=== PATIENT | female | born 1990 | race Caucasian/White ===

== ENCOUNTER 2016-12-06 18:01 | Emergency (ER) | payer MEDICAID ==
[~2016-12-06] VITALS: Ht 162.6 cm; Wt 59.6 kg
[~2016-12-06 18:01] MED LIST: ACET-2161 PO; ALBU8.5H INH; BENZ100C97 PO; BUDE0.5A6 AEROSOL; FLUO-138 PO; GUAI473S6 PO; HYDR-4246 PO; IBUP-1724 PO; ROPI0.256 PO
[2016-12-06 18:05] VITALS: Ht 162.6 cm; Wt 59.6 kg
--- OUTSIDE RECORDS SUMMARY | 2016-12-06 18:06 | XMS REPORT ---
Author Author Sherice Sang [facility] Address [address], [place] [address] Care Team Providers Care Upper Marker Name Role Phone Sang Smiley Unavailable [phone] PROBLEMS Type Condition ICD9-CM Code [id number] Code Onset Dates Condition Status SNOMED Code Problem Depressive disorder F32.9 Active 15474147 Problem Anxiety disorder, unspecified F41.9 Active 729615993 Problem Nicotine dependence, unspecified, uncomplicated F17.200 Active 920476129 Assessment Encounter for dental examination and cleaning without abnormal findings Z01.20 Jul, Active 168288593 Problem Restless legs syndrome G25.81 Active 40001317 Problem Migraine, unspecified, not intractable, without status migrainosus G43.909 Active 75643264 ALLERGIES Substance Reaction Event Type Date Status Zofran rash with IV form Drug Allergy Jul, Active Tramadol HCl anaphylaxis Drug Allergy Jul, Active Norflex rash Drug Allergy Jul, Active phenergan hives Non Drug Allergy Jul, Active peppers anaphylaxis Non Drug Allergy Jul, Active SOCIAL HISTORY No smoking Hx information available PLAN OF CARE VITAL SIGNS MEDICATIONS Medication Instructions Dosage Frequency Start Date End Date Duration Status Prozac 10 MG Orally Once a day 1 capsule in the morning 24h Jun, 30 day(s) Active ProAir HFA 108 (90 Base) MCG/ACT Inhalation every 6 hrs 2 puffs as needed for cough/congestion 6h Sep, 30 days Active Hydrocodone-Acetaminophen 7.5-325 MG Orally every 4-6 hrs p.r.n. for 1 tablet as needed Jul, 3 days Active Requip 0.25 MG Orally Once a day take 1 tablet one to three hours before bedtime 24h Mar, 30 day(s) Active RESULTS No Results PROCEDURES Procedure Date Ordered Related Diagnosis Body Site INTRAORL-PERIAPICAL 1 FILM 61287 Jul 29, 2016 LTD ORAL EVALUATION - PROBLEM FOCUS Jul 29, 2016 PALLIATVE TX DENTAL PAIN-MINOR PROC Jul 29, 2016 IMMUNIZATIONS No Known Immunizations
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
--- OUTSIDE RECORDS SUMMARY | 2016-12-06 18:07 | XMS REPORT ---
Author Author ZakSang martinez [facility] Address [address] [place], [place] [address] Care Team Providers Care Volunteer Recruitment Coordinator Name Role Phone Sang Smiley Unavailable [phone] PROBLEMS Type Condition ICD9-CM Code [id number] Code Onset Dates Condition Status SNOMED Code Problem Depressive disorder F32.9 Active 80120489 Problem Anxiety disorder, unspecified F41.9 Active 547852054 Problem Nicotine dependence, unspecified, uncomplicated F17.200 Active 968056625 Assessment Dental caries on pit and fissure surface penetrating into pulp K02.53 Jul, Active 8640011051803508 Problem Restless legs syndrome G25.81 Active 66651131 Problem Migraine, unspecified, not intractable, without status migrainosus G43.909 Active 87862127 ALLERGIES Substance Reaction Event Type Date Status [...] Frequency Start Date End Date Duration Status Hydrocodone-Acetaminophen 7.5-325 MG Orally every 4-6 hrs p.r.n. for 1 tablet as needed Jul, 3 days Active ProAir HFA 108 (90 Base) MCG/ACT Inhalation every 6 hrs 2 puffs as needed for cough/congestion 6h Sep, 30 days Active Prozac 10 MG Orally Once a day 1 capsule in the morning 24h Jun, 30 day(s) Active Requip 0.25 MG Orally Once a day take 1 tablet one to three hours before bedtime 24h Mar, 30 day(s) Active RESULTS No Results PROCEDURES Procedure Date Ordered Related Diagnosis Body Site EXTRAC ERUPTED TOOTH/EXPOSED ROOT Jul 30, 2016 IMMUNIZATIONS No Known Immunizations
--- NOTE | 2016-12-06 18:22 | ERPDOC ---
Departure Disposition Decision Date: Dec 06, 2016 Disposition Decision Time: 18:34 Disposition: 01 DISCHARGED HOME, SELF-CARE Impression Impression Impression: Primary Impression: Sacroiliac strain Encounter type: initial encounter Qualified Codes: S39.012A - Strain of muscle, fascia and tendon of lower back, initial encounter Additional Impressions: Elbow contusion Encounter type: initial encounter Laterality: left Qualified Codes: S50.02XA - Contusion of left elbow, initial encounter Fall Encounter type: initial encounter Qualified Codes: W19.XXXA - Unspecified fall, initial encounter Severity: Moderate Condition: Improved Seen By: Physician only Referrals: GONZALO PERALES DO (Family) Patient Instructions: Back Pain (ED), Contusion in Adults (ED) Problems/Meds/Labs Reviewed?: Yes Medications reviewed and manag: Yes Additional Instructions: Take ibuprofen 600 mg 4 times daily as needed for baseline pain control [place] 5 mg one tablet 4 times daily as needed for severe pain only Follow-up with your primary physician on Thursday or Thursday for recheck Follow up care ordered?: Yes Mental Status: Alert Scripts Hydrocodone/Acetaminophen ([place] 5-325 Tablet) 5-325 Tablet 1 TAB PO QID Y for PAIN, #15 Prov: GREGORY HAMMOND MD 12/06/16 HPI - Fall/Injury General Chief Complaint: Upper Extremity Pain Stated Complaint: LT ELBOW PAIN RT HAND PAIN BACK PAIN Time Seen by Provider: 18:06 Source: patient Exam Limitations: no limitations HPI - Fall/Injury Initial Comments Pt fell in a volleyball game yesterday. Injured her left elbow and right low back. Pain is intractable and intolerable despite using max dose otc meds. Occurred At: home Onset: Rapid Duration: 12-24 hrs Severity: moderate Injuries/Pain Location: upper extremity, back 1 - moderate pain with ecchymosis but no swelling 2 - Moderate right SI joint pain/tenderness Context: tripped Loss of Consciousness: no loss of consciousness Associated Symptoms: DENIES: abdominal pain, chest pain, confusion, dizziness, headache, lightheadedness, muscle spasms, nausea/vomiting, neck pain, ringing in ears, seizures, shortness of breath, slurred speech, trouble walking, vision changes Hx of Similar Symptoms: Yes Allergies: Coded Allergies: ondansetron HCl (Verified Allergy, Mild, "HIVES", 10/02/16) RED STREAK UP ARM AFTER IV DOSE GIVEN - PER PREVIOUS VISIT PT REPORTS "I GET HIVES" orphenadrine (Verified Allergy, Mild, RASH, 10/02/16) tramadol (Verified Allergy, Mild, RASH, 10/02/16) amoxicillin (Verified Allergy, Unknown, 10/02/16) prednisone (Verified Allergy, Unknown, 10/02/16) promethazine (Verified Allergy, Unknown, 10/02/16) Uncoded Allergies: GREEN PEPPERS (Allergy, Severe, SWELLING, 05/05/14) tongue swells JALAPENO PEPPERS (Allergy, Severe, TONGUE SWELLING, 04/13/12) PEACH FUZZ (Allergy, Mild, BLISTERING, 05/05/14) Past History Past Medical History Hx Echocardiogram: No Female: UTI, living children, miscarriage Neurological: seizures Musculoskeletal: back pain, neck pain Psychological: anxiety, depression Surgical History General: tonsils Reproductive/: , tubal ligation Family History Family PMH: FOUND: [place], diabetes, hypertension Vaccines Hx Influenza Vaccination: No Hx Pneumococcal Vaccination: No Hx Tetanus, Diptheria, Pertuss: Yes (UTD) Social History Smoking Status: Current every day smoker Does patient use chewing tobac: No Second Hand Exposure: No Substance Use Type: does not use Alcohol Intake: none Sexuality: male partner Current Occupational Status: unemployed Record Review Pertinent history updated: Yes Review of Systems Constitutional Constitutional: DENIES: appetite decrease, appetite increase, chills, dizziness , fever, weakness ENMT Ears: DENIES: pain Hearing: DENIES: hearing loss, tinnitus Balance: DENIES: vertigo Mouth/Throat: DENIES: change in swallowing, change in voice, hoarsness, painful swallowing, sore throat Cardiovascular Cardiac: DENIES: chest pain, dyspnea on exertion Rhythm/Rate: DENIES: irregular beat, palpitations, tachycardia Vascular: DENIES: pedal edema Pulmonary Respiratory: DENIES: cough, dyspnea, pleuritic chest pain GI Upper Abdomen: DENIES: dysphagia, heartburn/indigestion, nausea, pain, vomiting Lower Abdomen: DENIES: blood in stool, constipation, diarrhea, pain General: DENIES: burning, dysuria, frequency, pain, urgency Musculoskeletal General: pain, tenderness, DENIES: atrophy of muscles, cramps, gout, joint pain , joint swelling, spasm, weakness Integumentary Skin: DENIES: rash, sores Neurological General: DENIES: headache, numbness, tingling, vertigo, weakness Psychiatric Psychiatric: DENIES: anxiety, depression, nervousness Physical Exam General General Nourishment: well nourished, well developed, appears stated age, no acute distress, thin General Body Habitus: well groomed Vitals and Pain First Documented Vital Signs Date Time Temp Pulse Resp B/P Pulse Ox O2 Delivery O2 Flow Rate FiO2 12/06/16 18:05 98.2 91 16 116/77 100 Room Air Weight: Kilograms: Height (feet): 5 Height (inches): 4.00 Triage Pain Scale: Comments Observed at the triage desk the patient had no distress whatsoever, any related without difficulty and appeared to move all her extremities well. In the exam room the patient seemed to be in much greater distress, especially when examined over the areas that she stated that were tender. Normal Exams: Head: Normocephalic w/o trauma Eyes: Pupils are PERRLA w/ EOMI, No scleral icterus, irritation, or foreign bodies noted ENMT: No facial trauma, nasal exudates, pharyngeal erythema, or exudates are noted Neck: Full range of motion, without adenopathy, JVD, bruits or thyromegaly Chest/Resp: Clear all [place], with good airflow, and symmetry bilaterally CV: Regular rate and rhythm, without murmur or gallop, Pulses 2+ all extremities, capillary refill, <2 seconds all ext., no pedal edema noted Abdomen: Bowel sounds positive, soft, non-tender, non-distended, no hepatosplenomegaly, masses or bruits noted Lymphatic: No lymphadenopathy, or lymphedema noted Integumentary: No rashes, hives, or bruising noted, hair and nails, without abnormality Neurologic: Patient is alert, and oriented, cranial nerves, motor/sensory/ cerebellar, exams w/o gross deficits, to observation Psychiatric: Patient exhibits, appropriate attention, emotion and affect Musculoskeletal (brief) Musculoskeletal Brief: FOUND: tenderness, NOT FOUND: deformity, loss of motion , spasm Comments Mild generalized tenderness of the lateral left elbow, minimal area of contusion without swelling or deformity. Full range of motion. Patient also has moderate tenderness over the right upper SI joint, no muscular tenderness or spasms, no sciatica, and no midline tenderness of the back whatsoever. Progress Results/Orders Orders Procedure Category Date Status Time Hydromorphone PHA 12/06/16 Complete (Dilaudid) 18:30 Elbow Left 3 View RAD 12/06/16 Taken Medications Current ED Medications Hydromorphone HCl (Dilaudid) 1 mg O ONCE IM ; Start 12/06/16 at 18:30; Stop at 18:31; Status DC Progress Progress Patient given Dilaudid 1 mg IM for pain in the ER - Left wrist x-rays - normal, no evidence of dislocation or fracture No x-rays or CT were done of the back/pelvis since the patient has minimal symptomatology, minimal tenderness over the SI joint only, no deformity and inability to well. Patient sent home with prescription for [place] 5 mg one tablet up to 4 times daily as needed for pain for the next 3 days, 15 tablets. Patient is to follow- up Thursday or Thursday with Dr. Perales her primary physician for any worsening or ongoing symptoms GREGORY HAMMOND MD Dec 06, 2016 18:22
[2016-12-06] MEDS ORDERED: HYDROMORPHONE 2mg/ml INJECTION IM ONE (18:30)
[2016-12-06] MEDS ORDERED: HYDR-4246 PO (18:36)
[2016-12-06 18:45] VITALS: BP 112/73; PULSE 85; RESP 16; TEMP 98.2; O2SAT 100
[2016-12-06] MEDS ORDERED: HYDROCODONE/APAP 5/325 (PrePack) SENT HOME ONE (18:45)
--- NOTE | 2016-12-07 09:12 | DI ---
Indication: ITS.REASON: fall with elbow pain PROCEDURE: ELBOW LEFT 3 VIEW: Encounter: Initial Comparison: None Findings: There is no acute fracture, dislocation or malalignment identified. Impression: No acute osseous abnormality. .
== END 2016-12-06 18:45 | disposition home or self-care (01) ==
LOC: ED 18:01
DX: S39.012A Strain of muscle, fascia and tendon of lower back, initial encounter (principal); S50.02XA Contusion of left elbow, initial encounter; W01.0XXA Fall on same level from slipping, tripping and stumbling without subsequent striking against object, initial encounter; Y93.68 Activity, volleyball (beach) (court); Y92.830 Public park as the place of occurrence of the external cause; Y99.8 Other external cause status
CPT/HCPCS: 73080; 96372; 99283; J1170

== ENCOUNTER → 2016-12-10 | Outpatient (CLI) | payer MEDICAID ==
[~2016-12-10] MED LIST changes: -ALBU8.5H INH; +BENZ-16 PO; -BENZ100C97 PO; -BUDE0.5A6 AEROSOL; -FLUO-138 PO; -GUAI473S6 PO; -ROPI0.256 PO
[2016-12-10 17:01] LABS: MONOTEST NEGATIVE (NEGATIVE)
--- NOTE | 2016-12-11 08:30 | DI ---
INDICATION: ITS.REASON: J20.8 ACUTE BRONCHITIS DUE TO OTHER SPECIFIED ORGANISMS PROCEDURE: CHEST 2-VIEWS UPRIGHT (PA \T\ LAT) Encounter: Initial COMPARISON: September 22, 2016 FINDINGS: The lungs are clear without evidence of focal abnormal airspace opacity. There is no pleural effusion or pneumothorax. The heart size, mediastinal contours and pulmonary vascularity are within normal limits. There is no significant skeletal abnormality. IMPRESSION: No acute cardiopulmonary disease. .
--- NOTE | 2016-12-11 08:30 | DI ---
Indication: ITS.REASON: M54.5 LOW BACK PAIN PROCEDURE: LUMBAR SPINE COMP W/O BEND: Encounter: Initial Comparison: January 13, 2015 Findings: Alignment of the lumbar spine is stable. No acute fracture or subluxation. The vertebral body heights and disk spaces are unchanged. Impression: No acute fracture. .
--- NOTE | 2016-12-11 08:32 | DI ---
Indication: ITS.REASON: M79.641 PAIN IN RIGHT HAND PROCEDURE: HAND RIGHT 3 VIEW: Encounter: Initial Comparison: March 18, 2015 Findings: There is no acute fracture, dislocation or malalignment identified. Old fracture of the fifth metacarpal base. Impression: Old fracture of the fifth metacarpal base appears predominantly healed although a tiny refracture is difficult to entirely excluded. Recommend clinical correlation for focal tenderness. .
== END ==
LOC: IMA 16:22
PROVIDERS: ATTEND Internal Medicine
DX: J20.8 Acute bronchitis due to other specified organisms (principal); M54.5 Low back pain; M79.641 Pain in right hand; R07.0 Pain in throat
CPT/HCPCS: 36415; 86308; 87486; 87581; 87633; 87798

== ENCOUNTER 2016-12-11 12:43 | Emergency (ER) | payer MEDICAID ==
[~2016-12-11] VITALS: Ht 160 cm; Wt 59.3 kg
[~2016-12-11 12:43] MED LIST changes: -BENZ-16 PO
[2016-12-11 12:45] VITALS: Ht 160 cm; Wt 59.3 kg
--- OUTSIDE RECORDS SUMMARY | 2016-12-11 12:48 | XMS REPORT | Continuity of Care Document ---
Author Author [facility] Organization [facility] Address Unknown Phone Unavailable Support Name Relationship Address Phone GREGORY HAMMOND MD Caregiver [address] [place] [address] Unavailable GONZALO PERALES DO Caregiver [address] [place] [address] Unavailable PEDRO ALEJANDRO Next Of Kin [address] [place] [address] Insurance Providers Guarantor Pranay Francisco Concepción Address [address] [place] [address] Email [email or web address] Payer [facility] Community Plan Policy Number [id number] Subscriber's Name Pranay Francisco Relationship 18 Self Effective Date 16 Expiration Date 16 Advance Directives Directive Response Recorded Date/Time Advanced Directives Type None 12/09/13 4:20am Dr Ordered Resuscitation Status Full Code 02/01/14 12:55am Chief Complaint and Reason for Visit Chief Complaint Upper Extremity Pain Reason for Visit Sacroiliac strain Fall Elbow contusion Problems Active Problems Medical Problem Onset Date [...] caesarean section, antepartum 05/07/2014 Acute Pseudoseizures Unknown Right ovarian cyst Unknown Acute Second trimester Unknown Acute Sprain of right hand Unknown Acute UTI Unknown Acute UTI (urinary tract infection) Unknown Acute Urinary tract infection during 03/08/2014 Acute Vaginal discharge Unknown Acute rash Unknown Acute right great toe pain Unknown Acute Past Problems Medical Problem Onset Date Abscess Unknown Contusion, hand Unknown Dehydration, mild Unknown Diarrhea Unknown Elbow contusion Unknown Fall Unknown Hemorrhoid Unknown Hemorrhoids, external Unknown Impetigo follicularis Unknown Incisional pain Unknown Knee sprain Unknown Left ankle sprain Unknown Migraine headache Unknown Nausea & vomiting Unknown Right ovarian cyst Unknown Sacroiliac strain Unknown Sunburn of second degree Unknown Superficial laceration of hand Unknown UTI (urinary tract infection) Unknown Viral URI with cough Unknown Medications Current Home Medications Medication Dose Units Route Directions Days Qty Instructions Start Date Acetaminophen (Acetaminophen Extra Strength) 500 Mg Tablet 500 Mg Oral Every 8 Hours as needed for Pain 11/13/15 Hydrocodone/Acetaminophen ([place] 5-325 Tablet) 5-325 Tablet 1 Tab Oral Four Times Daily as needed for Pain 15 12/06/16 Ibuprofen 200 Mg Tablet 800 Mg Oral Every 8 Hours as needed for Pain 11/13/15 Past Home Medications Medication Directions Ordered Status Acetaminophen (Tylenol) 325 Mg Tablet, 325 Mg Oral As Needed 06/09/11 Discontinued Acetaminophen With Codeine (Tylenol With Codeine #3 Tablet) 1 Each Tablet, As Needed for Pain 05/05/14 Discontinued Ciprofloxacin Hcl (Cipro) 500 Mg Tablet, 500 Mg Oral Every 12 Hours 01/31/16 Discontinued Hydrocodone/Acetaminophen ([place] 5-325 Tablet) 5-325 Tablet, 1-2 Tab Oral Every 6 Hours for Pain 02/11/16 Discontinued Hydrocodone/Acetaminophen ([place] 5-325 Tablet) 5-325 Tablet, 1 Tab Oral Every 4-6 Hours as needed for Pain 02/01/16 Discontinued Hydrocodone/Acetaminophen ([place] 5-325 Tablet) 1 Each Tablet, 1 Tab Oral Every 6 Hours as needed for Pain 12/12/15 Discontinued Hydrocodone/Acetaminophen ([place] 5-325 Tablet) 1 Each Tablet, 1-2 Tab [...] Onset Date Status Hx Substance Use No 12/06/2016 6:22pm Not Applicable Not Applicable Hx Alcohol Use Y OCCASIONAL - "TWICE A MONTH, OR A FEW TIMES A YEAR" 2016 6:22pm Not Applicable Not Applicable Has the pt used tobacco in the last 12 months Yes 04/02/2016 5:19pm Not Applicable Not Applicable Tobacco Usage none 11/16/2013 5:54pm Not Applicable Not Applicable Query Response Start Date Stop Date Smoking Status Current every day smoker Hospital Discharge Instructions No hospital discharge instructions. Plan of Care Discharge Date 12/06/16 6:45pm Disposition 01 DISCHARGED HOME, SELF-CARE Condition at Discharge Improved Instructions/Education Provided Contusion in Adults (ED) Back Pain (ED) Prescriptions See Medication Section Referrals GONZALO PERALES DO Address: [address] [place] [phone] Additional Instructions/Education Take ibuprofen 600 mg 4 times daily as needed for baseline pain control [place] 5 mg one tablet 4 times daily as needed for severe pain only Follow-up with your primary physician on Thursday or Thursday for recheck Care Plan and Goals Physician Care Plan Problem: Fall with elbow contusion and right SI strain Goal: Follow up with primary care provider Instructions: Take medications and follow care plan as discussed/written Take ibuprofen 600 mg 4 times daily as needed for baseline pain control [place] 5 mg one tablet 4 times daily as needed for severe pain only Follow-up with your primary physician on Thursday or Thursday for recheck Functional Status No functional status results. Allergies, [...] UTD 03/19/15 2:40pm DTaP Vaccine History UNKNOWN 12/06/16 6:22pm Influenza Vaccine Hx NONE 12/06/16 6:26pm Tdap Vaccine Hx UNKNOWN 12/06/16 6:26pm Vital Signs Acute Vital Signs Vital Response Date/Time Temperature (Fahrenheit) 98.2 deg F (96.8 - 99.1) 12/06/2016 6:45pm Temperature (Calculated Celsius) 36.69272 degrees C (36.0 - 37.3) 12/06/2016 6:45pm Pulse Rate (adult) 85 bpm (60 - 100) 12/06/2016 6:45pm Respiratory Rate 16 breaths/min (10 - 20) 12/06/2016 6:45pm O2 Sat by Pulse Oximetry 100 % (90 - 100) 12/06/2016 6:45pm Blood Pressure 112/73 mm Hg 12/06/2016 6:45pm Height (Feet) 5 feet 12/06/2016 6:05pm Height (Inches) 4.00 inches 12/06/2016 6:05pm Weight (Kilograms) 59.600 kg 12/06/2016 6:05pm Body Mass Index (BMI) 22.0 12/06/2016 6:05pm Results Laboratory Results Test Name Result Units [...] Blood Count 11.6 T/MM3 H 4.5-11.0 10/02/2016 5:10/02/2016 5: 27pm Red Blood Count 4.84 M/MM3 4.00-5.20 10/02/2016 5:10/02/2016 5: 27pm Hemoglobin 14.6 GM/DL 12-10/02/2016 5:10/02/2016 5:27pm Hematocrit 42.0 % 36-46 10/02/2016 5:10/02/2016 5:27pm Mean Corpuscular Volume 86.8 UM3 80-100 10/02/2016 5:10/02/2016 5: 27pm Mean Corpuscular Hemoglobin 30.2 UUG [...] Chloride Level 109 MEQ/L H 98-107 10/02/2016 5:pm 10/02/2016 5:35pm Carbon Dioxide Level 24 MEQ/L 22-30 10/02/2016 5:pm 10/02/2016 5: 35pm Anion Gap 11 MEQ/L 5-15 10/02/2016 5:21pm 10/02/2016 5:35pm Blood Urea Nitrogen 9.0 MG/DL 7-17 10/02/2016 5:pm 10/02/2016 5:35pm Creatinine 0.7 MG/DL 0.7-1.2 10/02/2016 5:21pm 10/02/2016 5:35pm BUN/Creatinine Ratio 13 RATIO 6-10/02/2016 5:21pm 10/02/2016 5:35pm Glomerular Filtration Rate Calc 103 10/02/2016 5:21pm 10/02/2016 5: 35pm Glucose Level 91 MG/DL 65-110 10/02/2016 5:21pm 10/02/2016 5:35pm Calculated Osmolality 276 MOSM/KG 261-280 10/02/2016 5:10/02/2016 5:35pm Calcium Level 9.9 MG/DL 8.4-10.2 10/02/2016 5:pm 10/02/2016 5:35pm Urine Collection Type VOIDED-NOT CC-MIDSTR 10/02/2016 5:pm 2016 5:28pm Urine Color YELLOW YELLOW 10/02/2016 5:pm 10/02/2016 5:28pm Urine Turbidity CLEAR CLEAR 10/02/2016 5:10/02/2016 5:28pm Urine Specific [place] <=1.005 L 1.015-1.025 10/02/2016 5:2016 5:28pm Urine pH 5.0 5.0-8.0 10/02/2016 5:01pm [...] 2016 5:48pm Procedures Procedure Status Date Provider(s) Chest x-ray 2vw frontal&latl Completed 09/22/16 Influenza a/b ag ia Completed 09/22/16 Ther/proph/diag inj sc/im Completed 09/22/16 Emergency dept visit Completed 09/22/16 [id number]"INJECTION, KETOROLAC TROMETHAMINE, PER 15 MG" Completed 09/22/16 Urinalysis auto w/o scope Completed 09/24/16 Urine test Completed 09/24/16 Ther/proph/diag inj sc/im Completed 09/24/16 Emergency dept visit Completed 09/24/16 [id number]"INJECTION, DIPHENHYDRAMINE HCL, UP TO 50 MG" Completed 09/24/16 Ct abd & pelvis w/o contrast Completed 10/02/16 Metabolic panel total ca Completed 10/02/16 Urinalysis auto w/scope Completed 10/02/16 Urine test Completed 10/02/16 Complete cbc w/auto diff wbc Completed 10/02/16 Ther/proph/diag inj iv push Completed 10/02/16 Tx/pro/dx inj new drug addon Completed 10/02/16 Tx/pro/dx inj new drug addon Completed 10/02/16 Emergency dept visit Completed 10/02/16 [id number]"INJECTION, PROCHLORPERAZINE, UP TO 10 MG" Completed 10/02/16 [id number]"INJECTION, KETOROLAC TROMETHAMINE, PER 15 MG" Completed 10/02/16 Encounters Encounter Location Arrival/Admit Date Discharge/Depart Date Attending Provider Departed Emergency Room [facility] 12/06/16 6:01pm 12/06/16 6: 45pm GREGORY HAMMOND MD Departed Emergency Room [facility] 10/02/16 4:33pm 10/02/16 7: 17pm DECEMBERMATHEW DO Departed Emergency Room [facility] 09/24/16 4:32pm 09/24/16 6: 24pm BEULAH WREN MD Departed Emergency Room [facility] 09/22/16 10:03pm 09/22/16 11: 46pm BEULAH WREN MD Recent Diagnosis
[2016-12-11] MEDS ORDERED: BENZ-16 PO (12:58)
--- NOTE | 2016-12-11 13:32 | NUR ---
CASE MANAGEMENT AT BEDSIDE.
--- NOTE | 2016-12-11 14:28 | ERPDOC ---
Departure Disposition Decision Date: Dec 11, 2016 Disposition Decision Time: 14:28 Disposition: 01 DISCHARGED HOME, SELF-CARE Impression Impression Impression: Primary Impression: Sprain of right hand Severity: Moderate Condition: Improved Seen By: Physician only Referrals: GONZALO PERALES DO (Family) Patient Instructions: Arm Pain (ED) Problems/Meds/Labs Reviewed?: Yes Medications reviewed and manag: Yes Additional Instructions: You have an appointment with Dr. Pino on December 16. Please keep the splint on her right hand in place until you see her and are cleared, or treated. Follow up care ordered?: Yes Mental Status: Alert, Oriented HPI General Chief Complaint: Upper Extremity Injury Stated Complaint: R HAND PAIN Time Seen by Provider: 13:02 HPI Hand/Forearm Initial Comments 26-year-old female presents with right hand pain. Patient was seen in the ED 2 days ago, had x-ray of the right hand performed. She initially hurt her hand playing volleyball about a week ago. When the x-ray was performed 2 days ago, the reading was called to her today, stating that they cannot rule out a fracture on the proximal end of the fifth metacarpal. There recommended that she see Dr. Pino, and an appointment was made. However the patient felt like she would come to the ED and get quicker care. Loss of diagnostic cardiac sonographer strength by history , pain is her major complaint. Allergies: Coded Allergies: ondansetron HCl (Verified Allergy, Mild, "HIVES", 10/02/16) RED STREAK UP ARM AFTER IV DOSE GIVEN - PER PREVIOUS VISIT PT REPORTS "I GET HIVES" orphenadrine (Verified Allergy, Mild, RASH, 10/02/16) tramadol (Verified Allergy, Mild, RASH, 10/02/16) amoxicillin (Verified Allergy, Unknown, 10/02/16) prednisone (Verified Allergy, Unknown, 10/02/16) promethazine (Verified Allergy, Unknown, 10/02/16) Uncoded Allergies: GREEN PEPPERS (Allergy, Severe, SWELLING, 05/05/14) tongue swells JALAPENO PEPPERS (Allergy, Severe, TONGUE SWELLING, 04/13/12) PEACH FUZZ (Allergy, Mild, BLISTERING, 05/05/14) Past History Past Medical History Hx Echocardiogram: No Female: UTI, living children, miscarriage Neurological: seizures Musculoskeletal: back pain, neck pain Psychological: anxiety, depression Surgical History General: tonsils Reproductive/: , tubal ligation Family History Family PMH: FOUND: [place], diabetes, hypertension Vaccines Hx Influenza Vaccination: No Hx Pneumococcal Vaccination: No Hx Tetanus, Diptheria, Pertuss: Yes (UTD) Social History Tobacco Usage: smoke Alcohol Usage: none Drug Usage: none IV Drug Use: No Sexuality: male partner Residence: home Record Review Pertinent history updated: Yes Review of Systems Musculoskeletal General: see HPI All other Systems All Other Systems: Reviewed and Negative Exam General General Nourishment: well nourished, well developed General Body Habitus: well groomed Vital Signs: Temperature: 97.6, Source: Oral, Heart Rate: 117, Respiratory Rate : 16, BP: 123/84, Pulse Oximetry: 100 Height (Feet): 5 Height (Inches): 3.00 [place] Hand/Forearm Hand/Forearm : Comments Right hand examined, patient is tender proximal fifth metatarsal on the ulnar aspect. Appropriate capillary refill in all fingers, appropriate movement of all fingers. No bruising ecchymosis or edema is noted on the hand. Neurologic RN Documented GCS Eye Opening: Verbal: Motor: Total: Differential Diagnoses Considering: Contusion, Dislocation, Fracture, Sprain, Strain Progress Results/Orders Orders Procedure Category Date Status Time Case Management CONS 12/11/16 Transmitted Consult 13:11 Progress Progress X-ray reviewed, patient referred to Dr. Pino for evaluation. This is likely not a fracture, in my view. However I do want her followed up and evaluated. Ulnar gutter splint was placed to isolate the fifth metacarpal. Patient has an appointment for December [address] Pino. She agreed to follow-up with her. Case management was contacted to help with care management. I spoke with the patient about options to be seen outside the ED for nonemergent issues. LEI CHAUHAN MD Dec 11, 2016 14:28
[2016-12-11 14:41] VITALS: BP 114/82; PULSE 102; RESP 16; TEMP 97.6; O2SAT 100
--- NOTE | 2016-12-11 14:41 | NUR ---
DISCHARGE WRITTEN INSTRUCTIONS REVIEWED AND SENT WITH PT. PT VERBALIZES UNDERSTANDING OF DI, DENIES QUESTIONS. REPORTS ARM PAIN STILL 01/24. PT AMBULATES OUT OF ER WITH STEADY GAIT ACCOMP BY SO AT THIS TIME.
== END 2016-12-11 14:41 | disposition home or self-care (01) ==
LOC: ED 12:43
DX: S63.91XA Sprain of unspecified part of right wrist and hand, initial encounter (principal); X58.XXXA Exposure to other specified factors, initial encounter; Y93.68 Activity, volleyball (beach) (court); Y92.9 Unspecified place or not applicable; Y99.8 Other external cause status

== ENCOUNTER → 2016-12-11 | Outpatient (CLI) | payer MEDICAID ==
[2016-12-11 12:10] LABS: BASOPHILS % (AUTO) 0.4 % (0-2); EOSINOPHILS # (AUTO) 0.2 T/MM3 (0-0.5); EOSINOPHILS % (AUTO) 2.1 % (0-4); HCT - HEMATOCRIT 42.3 % (36-46); HGB - HEMOGLOBIN 14.8 GM/DL (12-16); IMMATURE GRANULOCYTE # (AUTO) 0.02 T/MM3 (0.00-0.03); IMMATURE GRANULOCYTE % (AUTO) 0.3 % (0.0-0.5); LYMPHOCYTES # (AUTO) 2.4 T/MM3 (1-4.8); LYMPHOCYTES % (AUTO) 29.7 % (23-45); MEAN CORPUSCULAR HGB 31.2 UUG (26-34); MEAN CORPUSCULAR VOLUME 89.1 UM3 (80-100); MEAN PLATELET VOLUME 9.6 UM3 (9.4-12.4); MONOCYTES # (AUTO) 0.6 T/MM3 (0-0.8); MONOCYTES % (AUTO) 7.4 % (0-9.0); NEUTROPHILS #(AUTO)-ABSOLUTE 4.8 T/MM3 (1.8-7.7); NEUTROPHILS % (AUTO) 60.1 % (33-66); RED BLOOD COUNT 4.75 M/MM3 (4.00-5.20)
[2016-12-11 12:16] LABS: BLOOD, URINE TRACE-INTACT (NEGATIVE); COLOR,URINE YELLOW (YELLOW); LEUKOCYTE ESTERASE ,URINE NEGATIVE (NEGATIVE); NITRITE,URINE NEGATIVE (NEGATIVE); UROBILINOGEN,URINE 0.2 EU/DL (NORMAL)
[2016-12-11 12:21] LABS: ANION GAP 15 MEQ/L (5-15); CHLORIDE 106 MEQ/L (98-107); CO2 - CARBON DIOXIDE 24 MEQ/L (22-30); CREATININE 0.9 MG/DL (0.7-1.2); POTASSIUM 4.2 MEQ/L (3.6-5); SODIUM 145 MEQ/L (134-144)
[2016-12-11 12:22] LABS: ALBUMIN 4.4 G/DL (3.5-5.0); ALBUMIN/GLOBULIN RATIO 1.3 RATIO (1.1-2.2); ALKALINE PHOSPHATASE 61 U/L (38-126); ALT (SGPT) 29 U/L (9-52); AST (SGOT) 21 U/L (14-36); BUN/CREATININE RATIO 9 RATIO (6-26); C-REACTIVE PROTEIN 8.3 MG/L (0-9); CALCIUM 9.5 MG/DL (8.4-10.2); GLOMERULAR FILTRATION RATE 76; GLUCOSE 110 MG/DL (65-110); TOTAL PROTEIN 7.9 G/DL (6.3-8.2)
[2016-12-11 12:25] LABS: BACTERIA,URINE TRACE (NEGATIVE); MUCUS,URINE PRESENT; RBC,URINE NONE SEEN /HPF (0-3); SQUAMOUS EPITHELIAL CELL,UR 0-5; WBC,URINE NONE SEEN /HPF (0-5)
== END ==
LOC: LAB 11:51
PROVIDERS: ATTEND Internal Medicine
DX: J20.8 Acute bronchitis due to other specified organisms (principal); M54.5 Low back pain; R07.0 Pain in throat
CPT/HCPCS: 36415; 80053; 81001; 84703; 85025; 86140